=== PATIENT | female | born 1970 | race Caucasian/White ===

== ENCOUNTER 2018-04-23 17:39 | Emergency (ER) | payer BC ==
[2018-04-23 18:37] LABS: ABS Basophils 0.1 10^3/ul (0-0.2); ABS Eosinophils 0.3 10^3/ul (0-0.6); ABS Lymphocytes 1.6 10^3/ul (1.0-4.8); ABS Monocytes 0.7 10^3/ul (0-0.8); ABS Neutrophils 6.9 10^3/ul (1.5-7.7); ABS Nucleated RBC 0 10^3/ul; Eosinophil % 3.4 % (0-6); Hematocrit 43 % (35-47); Hemoglobin 14.7 g/dl (12.0-16.0); Lymphocyte % 16.8 % (25-47); Mean Corpuscular HGB Conc 35 g/dl (31-36); Mean Corpuscular Hemoglobin 32 pg (27-31); Mean Corpuscular Volume 92 fL (80-97); Mean Platelet Volume 8.3 um3 (7.4-10.4); Nucleated Red Blood Cells % 0.2; Platelet Count 243 10^3/ul (150-450); Red Blood Count 4.64 10^6/ul (4.00-5.40); Red Cell Distribution Width 13 % (10.5-15); White Blood Count 9.6 10^3/ul (3.5-10.8)
[2018-04-23 18:56] LABS: EGFR Non-African American 105.6 (>60)
--- NOTE | 2018-04-23 19:25 | RAD ---
EXAM: US Abdomen Limited, Right Upper Quadrant EXAM DATE/TIME: 04/23/2018 6:43 PM CLINICAL HISTORY: 48 years old, female; Pain; Abdominal pain; Acute; Additional info: Abd pain, past HX of cholelithiasis TECHNIQUE: Real-time ultrasound of the abdomen with image documentation. Examination was focused on the right upper quadrant. COMPARISON: GB US GALL BLADDER 07/08/2013 8:15 AM FINDINGS: Liver: No masses or biliary dilatation . Gallbladder: Multiple shadowing gallstones are present in the gallbladder. No gallbladder wall thickening or pericholecystic fluid. Common bile duct: The common bile duct measures 2 mm. Pancreas: The pancreas was obscured by bowel gas. Right kidney: The right kidney measures 10.2 x 5.4 x 5.6 cm. IMPRESSION: 1. Cholelithiasis without gallbladder wall thickening or pericholecystic fluid. 2. Pancreas not visualized due to bowel gas. To contact [facility] with a general question: [facility] - [phone] For direct physician to physician contact: Physician Hotline - [phone] [facility] ([facility] Facility ID #[id number])
[2018-04-23] MEDS ORDERED: Lidocaine 2% VISCOUS* 15 ML UDC PO ONE (21:33)
[2018-04-23] MEDS ORDERED: Al Hydrox/Mg Hydrox/Simet LIQ* 30 ML UDC PO ONE (21:33)
[2018-04-23 21:39] LABS: Urine Appearance Clear; Urine Blood Negative (Negative); Urine Color Yellow; Urine Ketones Negative (Negative); Urine Protein Negative (Negative); Urine Specific Gravity 1.014 (1.010-1.030); Urine Urobilinogen Negative (Negative)
--- NOTE | 2018-04-23 21:45 | ED ---
GI/ HPI - HPI Summary HPI Summary: 48 year old female presents with epigastric for the past couple days. She is in significant pain that radiates to her back. She states she feels very gassy. She admits to nausea but denies any vomiting. She admits to decreased appetite. She feels similar to her gallbladder attacks in the past. She denies any chest pain or shortness breath. No diarrhea or constipation. No urinary symptoms. No vaginal discharge. she has a history of hypothyroidism. she hasn't tried anything for the pain. No blood in her stool. - History of Current Complaint Chief Complaint: EDAbdPain Time Seen by Provider: 04/23/18 21:17 Stated Complaint: ABD PAIN Pain Intensity: 7 - Allergy/Home Medications Allergies/Adverse Reactions: Allergies Allergy/AdvReac Type Severity Reaction Status Date / Time gluten Allergy Abdominal Verified 04/23/18 17:47 Pain PMH/Surg Hx/FS Hx/Imm Hx Endocrine/Hematology History: Reports: Hx Thyroid Disease Denies: Hx Diabetes Cardiovascular History: Denies: Hx Hypertension, Hx Pacemaker/ICD History: Denies: Hx Renal Disease Musculoskeletal History: Reports: Hx Back Problems Sensory History: Denies: Hx Hearing Aid Psychiatric History: Denies: Hx Panic Disorder - Surgical History Surgery Procedure, Year, and Place: TUBAL LIGATION WITH ESSURE-2010. LASIK EYE SURGERY FOR CORRECTIVE VISION 2008 Infectious Disease History: No Infectious Disease History: Denies: Traveled Outside the [place] in Last 30 Days - Family History Known Family History: Positive: Diabetes - Social History Alcohol Use: Weekly Substance Use Type: Reports: None Smoking Status (MU): Former Smoker Have You Smoked in the Last Year: No Review of Systems Negative: Fever Negative: Chest Pain Negative: Shortness Of Breath Positive: Abdominal Pain, Vomiting, Nausea. Negative: Diarrhea Negative: flank pain All Other Systems Reviewed And Are Negative: Yes Physical Exam Triage Information Reviewed: Yes Vital Signs On Initial Exam: Initial Vitals Temp Pulse Resp BP Pulse Ox 98.4 F 77 16 144/89 98 04/23/18 17:47 04/23/18 17:47 04/23/18 17:47 04/23/18 17:47 04/23/18 17:47 Vital Signs Reviewed: Yes Appearance: Positive: Well-Appearing Skin: Positive: Warm, Dry Head/Face: Positive: Normal Head/Face Inspection Eyes: Positive: Normal, Conjunctiva Clear ENT: Positive: Pharynx normal Respiratory/Lung Sounds: Positive: Clear to Auscultation, Breath Sounds Present Cardiovascular: Positive: Normal, RRR Abdomen Description: Positive: Soft, Other: - epigastric region Bowel Sounds: Positive: Present Musculoskeletal: Positive: Normal Neurological: Positive: Normal Psychiatric: Positive: Normal Diagnostics - Vital Signs Vital Signs Temp Pulse Resp BP Pulse Ox 04/23/18 21:25 74 123/74 98 04/23/18 21:24 75 04/23/18 19:41 98.5 F 65 16 129/69 99 04/23/18 17:47 98.4 F 77 16 144/89 98 - Laboratory Lab Results: Lab Results 04/23/18 04/23/18 04/23/18 Range/Units 18:30 18:30 21:23 WBC 9.6 (3.5-10.8) 10^3/ul RBC 4.64 (4.00-5.40) 10^6/ul Hgb 14.7 (12.0-16.0) g/dl Hct 43 (35-47) % MCV 92 (80-97) fL MCH 32 H (27-31) pg MCHC 35 (31-36) g/dl RDW 13 (10.5-15) % Plt Count 243 (150-450) 10^3/ul MPV 8.3 (7.4-10.4) um3 Neut % (Auto) 71.8 (38-83) % Lymph % (Auto) 16.8 L (25-47) % [place] % (Auto) 7.1 H (0-7) % Eos % (Auto) 3.4 (0-6) % Baso % (Auto) 0.9 (0-2) % Absolute Neuts (auto) 6.9 (1.5-7.7) 10^3/ul Absolute Lymphs (auto) 1.6 (1.0-4.8) 10^3/ul Absolute Monos (auto) 0.7 (0-0.8) 10^3/ul Absolute Eos (auto) 0.3 (0-0.6) 10^3/ul Absolute Basos (auto) 0.1 (0-0.2) 10^3/ul Absolute Nucleated RBC 0 10^3/ul Nucleated RBC % 0.2 Sodium 138 (135-145) mmol/L Potassium 3.7 (3.5-5.0) mmol/L Chloride 105 (101-111) mmol/L Carbon Dioxide 28 (22-32) mmol/L Anion Gap 5 (2-11) mmol/L BUN 8 (6-24) mg/dL Creatinine 0.61 (0.51-0.95) mg/dL Est GFR ( Amer) 127.8 (>60) Est GFR (Non-Af Amer) 105.6 (>60) BUN/Creatinine Ratio 13.1 (8-20) Glucose 98 (70-100) mg/dL Calcium 9.4 (8.6-10.3) mg/dL Total Bilirubin 0.50 (0.2-1.0) mg/dL AST 13 (13-39) U/L ALT 13 (7-52) U/L Alkaline Phosphatase 84 (34-104) U/L Troponin I Pending C-Reactive Protein 9.61 H (<8.01) mg/L Total Protein 7.3 (6.4-8.9) g/dL Albumin 4.1 (3.2-5.2) g/dL Globulin 3.2 (2-4) g/dL Albumin/Globulin Ratio 1.3 (1-3) Lipase 17 (11.0-82.0) U/L Beta HCG, Quant < 0.60 mIU/mL Urine Color Yellow Urine Appearance Clear Urine pH 6.0 (5-9) Ur Specific [place] 1.014 (1.010-1.030) Urine Protein Negative (Negative) Urine Ketones Negative (Negative) Urine Blood Negative (Negative) Urine Nitrate Negative (Negative) Urine Bilirubin Negative (Negative) Urine Urobilinogen Negative (Negative) Ur Leukocyte Esterase Negative (Negative) Urine Glucose Negative (Negative) Result Diagrams: 04/23/18 18:30 04/23/18 18:30 Lab Statement: Any lab studies that have been ordered have been reviewed, and results considered in the medical decision making process. - Ultrasound No standard instances Ultrasound Interpretation: Positive (See Comments) - IMPRESSION: 1. Cholelithiasis without gallbladder wall thickening or pericholecystic fluid. 2. Pancreas not visualized due to bowel gas. Ultrasound Interpretation Completed By: Radiologist - EKG No standard instances Cardiac Rate: NL EKG Rhythm: Sinus Rhythm EKG Interpretation: sinus rhythm Re-Evaluation - Re-Evaluation First Eval Re-Evaluation Time: 22:50 Change: Unchanged Comment: no improvement with GI cocktail and declines further pain medication GIGU Course/Dx - Course Course Of Treatment: 48 year old female presents with epigastric for the past couple days. She is in significant pain that radiates to her back. She states she feels very gassy. She admits to nausea but denies any vomiting. She admits to decreased appetite. She feels similar to her gallbladder attacks in the past. She denies any chest pain or shortness breath. No diarrhea or constipation. No urinary symptoms. No vaginal discharge. she has a history of hypothyroidism. she hasn't tried anything for the pain. No blood in her stool. On exam tenderness of the gastric region. Negative CVA tenderness. white blood cell count normal. LFT normal. Ultrasound shows cholelithiasis without evidence of cholecystitis. tried GI cocktail per patients request and no improvement. discussed pain medication and patient declined. patient has follow up with primary tomorrow. patient understand and agrees with plan. - Diagnoses Differential Diagnoses - Female: Gall Bladder Disease, Gastritis, Urinary Tract Infection Provider Diagnoses: Cholelithiasis Discharge - Sign-Out/Discharge Documenting (check all that apply): Patient Departure - Discharge Plan Condition: Good Disposition: HOME Patient Education Materials: Gallstones (ED) Referrals: Fabiola Ontiveros MD [Primary Care Provider] - Reggie Ryan MD [Medical Doctor] - Additional Instructions: follow up with primary as scheduled try to avoid high fatty foods take Tylenol or ibuprofen for pain as needed every 6 hours A referral was given to surgery Return to ED if develop fever or any new or worsening symptoms - Billing Disposition and Condition Condition: GOOD Disposition: Home
[2018-04-23 22:48] VITALS: BP 128/86
== END 2018-04-23 22:48 | disposition home or self-care (01) ==
LOC: ED 17:39
DX: K80.20 Calculus of gallbladder without cholecystitis without obstruction (principal); Z87.891 Personal history of nicotine dependence; E03.9 Hypothyroidism, unspecified
CPT/HCPCS: 36415; 76705; 80053; 80061; 81003; 82306; 83690; 84439; 84443; 84481; 84484; 84702; 85025; 86140; 93005; 99282; A9270-GY

== ENCOUNTER 2019-07-17 03:48 | Emergency (ER) | payer BC ==
[2019-07-17] MEDS ORDERED: NS 0.9% 1000 ML** 1,000 ML IV ONE (05:46)
[2019-07-17] MEDS ORDERED: Ketorolac INJ* 30 MG/ML 1 ML VIAL IV ONE (05:46)
[2019-07-17 06:24] LABS: ABS Eosinophils 0.3 10^3/ul (0-0.6); ABS Lymphocytes 1.2 10^3/ul (1.0-4.8); ABS Monocytes 0.5 10^3/ul (0-0.8); ABS Neutrophils 5.6 10^3/ul (1.5-7.7); Eosinophil % 4.4 %; Hematocrit 40 % (35-47); Hemoglobin 13.8 g/dL (12.0-16.0); Lymphocyte % 15.9 %; Mean Corpuscular HGB Conc 35 g/dL (31-36); Mean Corpuscular Hemoglobin 32 pg (27-31); Mean Corpuscular Volume 92 fL (80-97); Mean Platelet Volume 8.2 fL (7.4-10.4); Platelet Count 249 10^3/uL (150-450); Red Blood Count 4.37 10^6 /uL (3.70-4.87); Red Cell Distribution Width 13 % (10-15); White Blood Count 7.7 10^3/uL (3.5-10.8)
[2019-07-17 06:29] LABS: INR 0.97 (0.82-1.09)
[2019-07-17 06:37] LABS: Albumin/Globulin Ratio 1.4 (1-3); BUN/Creatinine Ratio 18.5 (8-20); C Reactive Protein 10.55 mg/L (<8.01); EGFR African American 118.2 (>60); EGFR Non-African American 97.7 (>60); Globulin 2.9 g/dL (2-4); Potassium 3.7 mmol/L (3.5-5.0); Total Bilirubin 0.4 mg/dL (0.2-1.0); Total Protein 6.9 g/dL (6.4-8.9)
[2019-07-17 06:47] LABS: Rapid Strep Molecular Negative (Negative)
[2019-07-17 06:53] LABS: Influenza A Molecular NEGATIVE (Negative); Influenza B Molecular NEGATIVE (Negative)
--- NOTE | 2019-07-17 07:11 | ED ---
Headache - HPI Summary HPI Summary: This patient is a 49yo F with a hx of hypothyroidism presenting to the ED with DE [place] TORRE which is at the base of the heat posteriorly, neck pain and difficulty swallowing. Symptoms have been present x 2 days, gradual onset with no associated fever. She feels her throat is swollen, "sticky," and as if something is obstructing her airway. Denies any SOB, but states when she lies flat, her throat begins to close up and she must sit up. Denies any fevers, sweats, chills, CP, dizziness, visual changes or recent illness. Denies myalgias and arthraligias. Unknown last TSH/T4 labwork. Pt has chronic low back pain and has taken flexeril and hydrocodone for her symptoms without relief. States she saw her chiropractor yesterday, but they refused to work on her d/t her [place] T[place]. Continues to drink and eat OK. No history of such. Denies neuro symptoms otherwise including numbness and tingling or weakness throughout. Denies IV drug use. Denies any photophobia or stiff neck. Denies bilateral anterior neck pain, radiation of pain or shooting sensation to the bilateral upper extremities. Denies any weakness. Immunizations are UTD. Ashu Villagomez is PCP. - History Of Current Complaint Chief Complaint: EDHeadache Stated Complaint: HEADACHE PER PT Time Seen by Provider: 07/17/19 05:36 Hx Obtained From: Patient Onset/Duration: Gradual Onset Initially Headache Was: Initial Pain Scale(0-10)= - 9 Currently Pain Is: Current Pain Scale(0-10)= - 9 Timing: Constant Location of Headache: Occipital Aggravating Factor: Nothing Allevating Factors: Nothing Associated Signs And Symptoms: Neck Pain - no stiffness - Risk Factors SAH Risk Factors: Negative Meningitis Risk Factors: Negative SDH Risk Factors: Negative Temporal Arteritis Risk Factors: Female, - Allergies/Home Medications Allergies/Adverse Reactions: Allergies Allergy/AdvReac Type Severity Reaction Status Date / Time gluten Allergy Abdominal Verified 07/17/19 03:53 Pain PMH/Surg Hx/FS Hx/Imm Hx Previously Healthy: Yes Endocrine/Hematology History: Reports: Hx Thyroid Disease Denies: Hx Diabetes Cardiovascular History: Denies: Hx Hypertension, Hx Pacemaker/ICD History: Denies: Hx Renal Disease Musculoskeletal History: Reports: Hx Back Problems Sensory History: Denies: Hx Hearing Aid Psychiatric History: Denies: Hx Panic Disorder - Surgical History Surgery Procedure, Year, and Place: TUBAL LIGATION WITH ESSURE-2010. LASIK EYE SURGERY FOR CORRECTIVE VISION 2008 - Immunization History Hx Pertussis Vaccination: No Immunizations Up to Date: Yes Infectious Disease History: No Infectious Disease History: Denies: Traveled Outside the [place] in Last 30 Days - Family History Known Family History: Positive: Diabetes - Social History Occupation: Employed Full-time Lives: With Family Alcohol Use: Occasionally Hx Substance Use: No Substance Use Type: Reports: None Hx Tobacco Use: Yes Smoking Status (MU): Former Smoker Have You Smoked in the Last Year: No Review of Systems Negative: Fever, Chills, Fatigue, Skin Diaphoresis ENT: Other - no trismus, drooling Negative: Palpitations, Chest Pain Negative: Shortness Of Breath, Cough Genitourinary: Negative Positive: no symptoms reported, see HPI Positive: Arthralgia - neck pain to the posterior (occiput area) base . Negative: Myalgia Skin: Negative Positive: Headache. Negative: Weakness, Paresthesia, Numbness, Slurred Speech Psychological: Normal All Other Systems Reviewed And Are Negative: Yes Physical Exam Triage Information Reviewed: Yes Vital Signs On Initial Exam: Initial Vitals Temp Pulse Resp BP Pulse Ox 97.6 F 68 18 106/73 99 07/17/19 03:50 07/17/19 03:50 07/17/19 03:50 07/17/19 03:50 07/17/19 03:50 Vital Signs Reviewed: Yes Appearance: Positive: Well-Appearing, Well-Nourished Skin: Positive: Warm, Skin Color Reflects Adequate Perfusion Head/Face: Positive: Normal Head/Face Inspection. Negative: Temporal Artery Tenderness, Scalp, Cephalohematoma Eyes: Positive: EOMI, Conjunctiva Clear ENT: Positive: Uvula midline, Other - no evidence of swelling on PE. Negative: Pharyngeal erythema, Nasal congestion, Nasal drainage, Tonsillar swelling, Tonsillar exudate Dental: Negative: Cervical Lymphadenopathy Neck: Positive: Other: - tenderness to the posterior neck - not bilateral - denies dysphagia Respiratory/Lung Sounds: Positive: Clear to Auscultation, Breath Sounds Present Cardiovascular: Positive: RRR, Pulses are Symmetrical in both Upper and Lower Extremities Musculoskeletal: Positive: Strength/ROM Intact Neurological: Positive: Sensory/Motor Intact, Alert, Oriented to Person Place, Time Psychiatric: Positive: Normal, Affect/Mood Appropriate AVPU Assessment: Alert Procedures - Sedation Patient Received Moderate/Deep Sedation with Procedure: No Diagnostics - Vital Signs Vital Signs Temp Pulse Resp BP Pulse Ox 07/17/19 06:31 71 105/63 99 07/17/19 06:28 67 111/62 100 07/17/19 06:19 63 90/66 99 07/17/19 06:06 69 99 07/17/19 05:30 77 110/69 96 07/17/19 05:00 71 111/75 95 07/17/19 04:30 75 121/82 96 07/17/19 04:00 75 116/95 98 07/17/19 03:59 72 98 07/17/19 03:50 97.6 F 68 18 106/73 99 - Laboratory Lab Results: Lab Results 07/17/19 07/17/19 07/17/19 Range/Units 06:15 06:15 06:15 WBC 7.7 (3.5-10.8) 10^3/uL RBC 4.37 (3.70-4.87) 10^6 /uL Hgb 13.8 (12.0-16.0) g/dL Hct 40 (35-47) % MCV 92 (80-97) fL MCH 32 H (27-31) pg MCHC 35 (31-36) g/dL RDW 13 (10-15) % Plt Count 249 (150-450) 10^3/uL MPV 8.2 (7.4-10.4) fL Neut % (Auto) 73.0 % Lymph % (Auto) 15.9 % [place] % (Auto) 6.1 % Eos % (Auto) 4.4 % Baso % (Auto) 0.6 % Absolute Neuts (auto) 5.6 (1.5-7.7) 10^3/ul Absolute Lymphs (auto) 1.2 (1.0-4.8) 10^3/ul Absolute Monos (auto) 0.5 (0-0.8) 10^3/ul Absolute Eos (auto) 0.3 (0-0.6) 10^3/ul Absolute Basos (auto) 0.0 (0-0.2) 10^3/ul Absolute Nucleated RBC 0.0 10^3/ul Nucleated RBC % 0.0 INR (Anticoag Therapy) 0.97 (0.82-1.09) Sodium 135 (135-145) mmol/L Potassium 3.7 (3.5-5.0) mmol/L Chloride 103 (101-111) mmol/L Carbon Dioxide 27 (22-32) mmol/L Anion Gap 5 (2-11) mmol/L BUN 12 (6-24) mg/dL Creatinine 0.65 (0.51-0.95) mg/dL Est GFR ( Amer) 118.2 (>60) Est GFR (Non-Af Amer) 97.7 (>60) BUN/Creatinine Ratio 18.5 (8-20) Glucose 93 (70-100) mg/dL Calcium 9.0 (8.6-10.3) mg/dL Total Bilirubin 0.40 (0.2-1.0) mg/dL AST 13 (13-39) U/L ALT 12 (7-52) U/L Alkaline Phosphatase 70 (34-104) U/L C-Reactive Protein 10.55 H (<8.01) mg/L Total Protein 6.9 (6.4-8.9) g/dL Albumin 4.0 (3.2-5.2) g/dL Globulin 2.9 (2-4) g/dL Albumin/Globulin Ratio 1.4 (1-3) Influenza A (Rapid) (Negative) Influenza B (Rapid) (Negative) Group A Strep Rapid (Negative) 07/17/19 07/17/19 Range/Units 06:25 06:25 WBC (3.5-10.8) 10^3/uL RBC (3.70-4.87) 10^6 /uL Hgb (12.0-16.0) g/dL Hct (35-47) % MCV (80-97) fL MCH (27-31) pg MCHC (31-36) g/dL RDW (10-15) % Plt Count (150-450) 10^3/uL MPV (7.4-10.4) fL Neut % (Auto) % Lymph % (Auto) % [place] % (Auto) % Eos % (Auto) % Baso % (Auto) % Absolute Neuts (auto) (1.5-7.7) 10^3/ul Absolute Lymphs (auto) (1.0-4.8) 10^3/ul Absolute Monos (auto) (0-0.8) 10^3/ul Absolute Eos (auto) (0-0.6) 10^3/ul Absolute Basos (auto) (0-0.2) 10^3/ul Absolute Nucleated RBC 10^3/ul Nucleated RBC % INR (Anticoag Therapy) (0.82-1.09) Sodium (135-145) mmol/L Potassium (3.5-5.0) mmol/L Chloride (101-111) mmol/L Carbon Dioxide (22-32) mmol/L Anion Gap (2-11) mmol/L BUN (6-24) mg/dL Creatinine (0.51-0.95) mg/dL Est GFR ( Amer) (>60) Est GFR (Non-Af Amer) (>60) BUN/Creatinine Ratio (8-20) Glucose (70-100) mg/dL Calcium (8.6-10.3) mg/dL Total Bilirubin (0.2-1.0) mg/dL AST (13-39) U/L ALT (7-52) U/L Alkaline Phosphatase (34-104) U/L C-Reactive Protein (<8.01) mg/L Total Protein (6.4-8.9) g/dL Albumin (3.2-5.2) g/dL Globulin (2-4) g/dL Albumin/Globulin Ratio (1-3) Influenza A (Rapid) Negative (Negative) Influenza B (Rapid) Negative (Negative) Group A Strep Rapid Negative (Negative) Result Diagrams: 07/17/19 06:15 07/17/19 06:15 Lab Statement: Any lab studies that have been ordered have been reviewed, and results considered in the medical decision making process. Re-Evaluation - Re-Evaluation First Eval Change: Improved - improved s/p toradol - pt states neck pain and [place] TORRE reduced from 02/09 to now 09/09 Second Eval Change: Unchanged - denies worsening condition, continues to be unable to lie flat d/t difficulty swallowing - xray ordered showing diffuse swelling, recommend f/u CT Headache Course/Dx - Course Course Of Treatment: Pt evaluated for difficulty swallowing, posterior neck pain to the occiput and [place] T[place]. Labs obtained which show no significant abnormalities except for a CRP of 10. D/t severe [place] T[place] (rated 8/10), CT brain obtained. This shows no evidence of intracranial abnormalities. Pt given 30mg IV toradol. Pt states symptoms have improved and able to rotate about the neck with minimal discomfort. No wosening symptoms with flexion and extension of the neck. Denies "stiffness" but continues to endorse diffuse discomfort. DE [place] TORRE currently rated 3/10. Afebrile, VS stable. Pt resting comfortably on side. States she continues to have difficulty with lying back as her throat will close. Concerned for obsturction or swelling. No fever, stridor, drooling, respiratory distress, anxiety to suggest evidence of epiglottitis. Immunizations UTD. However, pt continues to c/o difficulty swallowing with throat closing sensation. No pharyngeal erythema and unable to visualize the glottic structures d/t body habitus. Neck soft tissue obtained: IMPRESSION: DIFFUSE PREVERTEBRAL SOFT TISSUE SWELLING. RECOMMEND CONSIDERATION OF FURTHER EVALUATION WITH CONTRAST-ENHANCED CT OF THE NECK. Follow up CT shows: IMPRESSION: Robust generalized retropharyngeal edema with no organized fluid collection. The airway remains patent. These findings may be secondary to longus colli calcific tendinitis. Presentation is consistent with this dx and pt did improve with toradol. She denies DE [place] TORRE currently. Elevated TSH and low T4 - will f/u with PCP regarding this. Toradol 10mg four times daily given as prescriptions and return precautions. - Diagnoses Differential Diagnosis/HQI/PQRI: Other - calcific tendinitis of the longus colli muscle, occiput DE [place] TORRE, migraine, viral illness, retropharyngeal swelling Provider Diagnoses: Neck pain, Occipital headache Discharge ED - Sign-Out/Discharge Documenting (check all that apply): Patient Departure - Discharge Plan Condition: Stable Disposition: HOME Prescriptions: Ketorolac TAB * [Toradol TAB *] 10 mg PO Q6H #16 tab Referrals: Fabiola Ontiveros MD [Primary Care Provider] - Additional Instructions: Please follow up with PCP Toradol four times daily x 4 days - start this medication this afternoon as your first dose and can have another 2 doses today You can take all four doses tomorrow Please return to the ED if you develop any fevers, sweats or chills or any worsening swallowing condition Please follow up with PCP regarding your elevated TSH markers - Billing Disposition and Condition Condition: STABLE Disposition: Home
[2019-07-17] MEDS ORDERED: Iohexol 300* (CONTRAST) 10 ML SDV IV ONE (08:28)
[2019-07-17 09:19] LABS: T4, Total 4.95 mcg/dL (6.09-12.23)
[2019-07-17 09:23] LABS: TSH (Thyroid Stimulating Horm) 42.58 mcIU/mL (0.34-5.60)
[2019-07-17 10:20] VITALS: BP 101/66
== END 2019-07-17 10:21 | disposition home or self-care (01) ==
LOC: ED 03:48
DX: R51 Headache (principal); M54.2 Cervicalgia; E07.9 Disorder of thyroid, unspecified; Z87.891 Personal history of nicotine dependence; Z98.51 Tubal ligation status
CPT/HCPCS: 36415; 70360; 70450; 70491; 80053; 84436; 84443; 85025; 85610; 86140; 87651; 96361; 96374; 99283; J1885; Q9967